=== PATIENT | female | born 1990 | race Caucasian/White ===

== ENCOUNTER 2022-04-06 11:19 | Inpatient (IN) | payer OTHER, SELFPAY ==
[2022-04-06] VITALS (9 sets, daily range): BP systolic 98–141; BP diastolic 63–86; PULSE 114–132; RESP 16–19; TEMP 37.1–38.6; O2SAT 97–100; BMI 23.4; BMI 24.2
--- NOTE | 2022-04-06 11:52 | XRR_ITS ---
PROCEDURE INFORMATION: Exam: XR Chest Exam date and time: 04/06/2022 12:20 PM Age: 31 years old Clinical indication: Cough and dyspnea; Patient HX: Reaction/swelling redness all over face and back, nausea and vomiting started Tuesday. Head pressure/lightheadness started this morning; Additional info: Dyspnea/cough TECHNIQUE: Imaging protocol: Radiologic exam of the chest. Views: 1 view. COMPARISON: No relevant prior studies available. FINDINGS: Lungs: Unremarkable. No consolidation. Pleural spaces: Unremarkable. No pleural effusion. No pneumothorax. Heart/Mediastinum: Unremarkable. No cardiomegaly. Bones/joints: Unremarkable. XR/XR chest 1V portable [id number] IMPRESSION: No acute findings.
--- NOTE | 2022-04-06 12:05 | ECG_ITS ---
[facility] Test Date: 2022-04-06 Pat Name: Gisella Lazaro Department: Room: Gender: Female Radiologic Technologist Mammogram: : 1990 Requested By: Shahbaz Ames Order Number: [id number] Manuelito MD: Yazmin Stubbs M.D. Measurements Intervals Diamond Rate: 123 P: 66 VT: 123 QRS: 59 QRSD: 73 T: -16 QT: 337 QTc: 484 Interpretive Statements SINUS TACHYCARDIA NONSPECIFIC ST & T-WAVE ABNORMALITY No previous ECG available for comparison Electronically Signed On 04-06-2022 20:27:25 CLARITY DEVELOPER by Yazmin Stubbs M.D. [id number]
[2022-04-06 12:20] LABS: Basophils % 0.2 %; Hematocrit 38.7 % (37.0-47.0); Hemoglobin 12.6 g/dL (11.5-15.3); Lymphocytes # 0.8 10^3/uL (0.8-4.8); Lymphocytes % 6.6 %; Mean Corpuscular HGB Conc 32.6 g/dL (30.0-36.0); Mean Corpuscular Volume 89.2 fl (81-99); Mean Platelet Volume 9.9 fL (7.4-10.4); Monocytes # 0.6 10^3/uL (0.2-0.9); Monocytes % 4.5 %; Neutrophils # 10.91 10^3/uL (1.8-7.7); Neutrophils % 88.3 %; Nucleated Red Blood Cells % 0 %; Platelet Count 236 10^3/cmm (130-400); Red Blood Count 4.34 10^6/uL (4.1-5.3); White Blood Count 12.4 10^3/uL (4.0-10.0)
[2022-04-06] MEDS: sodium chloride 0.9% 1,000 ML 999 ML IV (12:22)
[2022-04-06] MEDS: ondansetron 2 mg/ML SDV 2 mL 4 MG IVP (12:22)
[2022-04-06 12:51] LABS: Procalcitonin 0.23 ng/mL (0-0.5)
[2022-04-06 13:04] LABS: Alanine Aminotransferase 12 U/L (0-33); Albumin Level 3.7 g/dL (3.5-5.2); Alkaline Phosphatase 61 U/L (35-105); Aspartate Amino Transferase 12 U/L (0-32); Blood Urea Nitrogen 7 mg/dL (6-20); Calcium 9.2 mg/dL (8.5-10.5); Carbon Dioxide 21 mmol/L (22-29); Chloride 100 mmol/L (98-107); Globulin 3.6 g/dL (1.3-4.6); Glomerular Filtration Rate 84.2 mL/min (90-130); Glucose 92 mg/dL (65-115); Osmolality Calculated 274 mOsm/kg (285-295); Sodium 133 mmol/L (136-145); Total Bilirubin 0.4 mg/dL (0.15-1.2); Total Protein 7.3 g/dL (6.6-8.7)
[2022-04-06] MEDS: morphine 4 mg/mL SDV 1 mL IVP (13:05)
[2022-04-06 13:08] LABS: Anion Gap 15.8 (5-19); Potassium 3.8 mmol/L (3.5-5.1)
[2022-04-06 13:12] LABS: Add Urine Microscopic? YES; Bilirubin Urine Neg (Negative); Blood Urine 3+ (Negative); Glucose Urine UA Norm (Normal); Ketones Urine Negative (Negative); Leukocyte Esterase Urine Negative (Negative); Nitrate Urine Negative (Negative); Protein Urine Neg (Negative); Urine Appearance Clear (CLEAR); Urine Color Straw (Yellow); Urobilinogen Urine Norm (Negative); pH Urine 7 (5-7)
--- NOTE | 2022-04-06 13:26 | P.HP_ITS ---
Providers/Chief Complaint Admitting Physician: Kell Field MD Primary Care Provider: Ten Paris MD Chief Complaint: facial swelling History of Present Illness Gisella Lazaro is a 31 year old female who presented to the emergency room after being seen by primary care provider Dr. Paris today. At the end of last week she had what she thought was a pimple behind her right ear. She popped it and things seem to be getting better. This weekend she developed a rash that began around her right ear and the right side of her neck. It spread across her face. She was seen at urgent care clinic on April 04 with complaints of pain on the right side of her face that went up and down her neck and scalp area. She was also having fever. She had a shingles-like rash on her face and received treatment with steroids and valacyclovir as well as some hydrocodone. She has been taking both hydrocodone and ibuprofen to help with the degree of pain that she is experiencing. She denies any pain in her eyes or difficulty moving her eyes. She describes a full sensation in her brain today that was very uncomfortable. She is having itching in addition to skin pain. She had some vomiting throughout Tuesday and difficulty keeping down liquids. Last bowel movement was Tuesday and she is usually regular. She has had a poor appetite. Overnight last night the swelling of her face worsened as did the area of involvement. It now extends down her back and includes more than half of her face. The severity of the pain has also become more intense. She was seen at Dr. Paris's office and sent to the hospital for further evaluation. In the emergency room she was found to have a small hemorrhagic vesicle inside her right ear. White count was noted to be 12,000. She clinically appeared dry. She received IV fluids and was started on vancomycin. Blood cultures were collected. She did have a fever documented in the emergency room of 101.5. Her child has been in daycare and bring home different illnesses. Her last menstrual cycle was 03/20/22. Does not use tampons. No new skin products. Gets some relief from pain and itching with calamine lotion (area of skin involvement was present prior to her over using calamine). Does not routinely utilize Q-tips though did use 1 this morning after her symptoms worsened and describes yellowish debris, likely wax. She has never had anything like this before. Last antibiotic use was amoxicillin in early March when she had a bilateral ear infection. She completed treatment and ears normalized. Given her degree of pain and swelling, extent of involvement, persistent fever and tachycardia along with leukocytosis she is being admitted for further care. Cellulitis has developed over a 3-day period of time to the extent that it is today. Pictures from when it first started were obtained from Mrs. Lazaro and her and are noted below. PICTURES TAKEN ON 04/04/22 by patient/ 04/04/22 View of face from front 04/04/22 view of face from side 04/04/22 view of right cheek/mandibular angle Review of Systems Const: Reports: fever(s), chills and malaise Eyes: Denies: change in vision, eye discomfort or eye redness ENMT: Reports: throat pain (mild), ear or mastoid pain and other (pain of skin on face, neck, right ear); Denies: odynophagia (no droolinig or difficulty swalling), hoarseness, mouth pain, oral sores, ear discharge, tinnitus, disequilibrium or nasal congestion Card: Denies: chest pain Resp: Denies: dyspnea or wheezing GI: Reports: nausea, vomiting and constipation; Denies: abdominal pain, dysphagia or diarrhea : Denies: difficulty voiding Musc: Reports: neck pain (right side) and back pain (upper back where skin is hurting); Denies: joint pain or joint swelling Skin/Breast: Reports: rash, pruritus, erythema, skin pain, skin tenderness and skin swelling Psych: Reports: anxiety (about current situation) [place]/Lymph: Denies: easy bleeding All/Imm: Reports: facial swelling Medications/Allergies Home Medications Medication Instructions Recorded Confirmed Last Taken Type hydrocodone 5 mg-acetaminophen 325 1 tab PO Q4H PRN pain 7 days #28 04/04/22 04/06/22 04/06/22 09:00 Rx mg tablet tabs prednisone 20 mg tablet 20 mg PO DAILY 5 days #15 tabs 04/04/22 04/06/22 04/05/22 Rx states finished 04/05/ valacyclovir 1 gram tablet 1,000 mg PO Q8H 10 days #30 tabs 04/04/22 04/06/22 04/06/22 07:30 Rx calcium carbonate 200 mg calcium 200 mg PO QID PRN unknown 04/06/22 04/06/22 04/06/22 History (500 mg) chewable tablet (Tums) hydroxyzine HCl 25 mg tablet 25 mg PO BEDTIME PRN Anxiety 04/06/22 04/06/22 4 Days Ago History ~04/02/22 ibuprofen 200 mg tablet 600 - 800 mg PO Q6H PRN Pain 04/06/22 04/06/22 04/04/22 History Allergies Allergy/AdvReac Type Severity Reaction Status Date / Time ceftriaxone [From Rocephin] Allergy ALGY-Rash Verified 04/06/22 12:59 Additional Medication Information no chronic medications beyond prns - uses hydroxyzine 2-3 times per week to help sleep when her mind is full of thoughts and takes occasional times PFSH Acute PFSH: Medical History (Updated 04/06/22 @ 19:22 by Kell Field MD) 1 para 1 History of scarlet fever Surgical History (Updated 04/06/22 @ 14:48 by Kell Field MD) History of Family History (Updated 04/06/22 @ 14:49 by Kell Field MD) Father , age 51 from CAD CAD (coronary artery disease) Social History (Updated 04/06/22 @ 14:50 by Kell Field MD) Smoking and tobacco status: never smoked Alcohol intake: never Substance/Drug Use: never Marital status: Number of children: 1 Current occupational status: employed 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 Reproductive History: Date of last menstrual period: 03/20/22 G ravida: 1 Para: 1 Vitals/I&O/Wt Last Vital Signs Temp 101.5 F H 04/06/22 11:24 Pulse 126 H 04/06/22 12:01 Resp 19 H 04/06/22 13:05 BP 138/83 04/06/22 12:01 Pulse Ox 100 04/06/22 12:01 O2 Del Method 04/06/22 12:01 Weight last 48 hrs Weight 54.431 kg Physical Exam Narrative: Constitutional: Looks like she does not feel well, anxious, shaking chills, cooperative HEENT: Facial skin edema as described below, extraocular movements are intact with no evidence of pain appreciated, no photosensitivity, pupils are equally reactive bilaterally, conjunctive are are not particularly injected, sclera are white. Nasopharynx is clear. Oropharynx with dry mucous membranes and dry lips. There is a small couple of millimeter whitish exudate on the left tonsil and a couple millimeter area of erythema on the right tonsil. Both tonsils are within the tonsillar crypts. Able to visualize posterior oropharynx without any erythema otherwise appreciated. No vesicles. No open sores. Good dentition. Right ear is swollen. No significant increase in tenderness with tugging on the pinna. Via otoscopic examination, there is a 3 or 4 mm diameter hemorrhagic appearing vesicle on the anterior surface of the right ear canal. Canal is not particularly erythematous or remarkable otherwise. Tympanic membrane is clear with brisk light reflex and no erythema. Neck: Tender right-sided cervical lymphadenopathy along the entire sternoc leidomastoid chain and into the submandibular area. Impacts range of motion though able to tilt head forward to allow me to examine her back. In addition to neck adenopathy, has tender right axillary adenopathy. No left axillary adenopathy noted. Respiratory: Clear to auscultation bilaterally, tachypnea noted Cardiovascular: Tachycardic but regular rhythm, no murmurs Abdomen: Soft, nontender Extremities: No pitting edema to extremities, brisk capillary refill Skin: Tender warm edematous and erythematous skin on the face involving the entire right side except for the nasolabial fold and perioral regions. Skin of the nasal bridge and the tip of the nose are included and extends to the left side of the face about mid eye line. Lips are dry. Erythema extends down the right side of the neck, not involving the neck crease into the right mid shoulder. Erythema extends around the right ear and posterior auricular region and here does include the creases around the ear. Scalp on the right side of the head is erythematous and warm to touch. 2 small scabbed lesions that are unimpressive in the posterior auricular area near where her glasses might hit the occipital bone. No other open skin wounds visible or palpable on the scalp. Left side of the scalp is less erythematous. Patient's hair touching her skin hurts. Erythema extends down the back in a V-shaped pattern from the right shoulder to the base of the right scapula and a little bit beyond and then up to the left mid clavicular area again with edema and tenderness to palpation along with heat noted. No areas of desquamating skin. Beyond the vesicle noted in the right ear no other vesicles noted. Neuro: Speech clear, moves all extremities, tremors from shaking chills noted but otherwise no abnormal movements Psych: Normal affect for current clinical condition Skin: OTHER: 04/06/22 view of face from front -patient has calamine lotion on her face 04/06/22 view of face from right side -calamine lotion is on face 04/06/22 view of back - does not show skin edema well, nor redness from left scapular area almost to right shoulder and extends to base of right scapula in a V shape from mid left scapula extending to mid back and back up to the right shoulder. -Calamine lotion is on back Data 04/06/22 12:10 04/06/22 12:10 Other Labs: Radiology Impressions Chest X-Ray 04/06/22 11:52 IMPRESSION: No acute findings. Laboratory Results WBC 12.4 10^3/uL (4.0-10.0) H 04/06/22 12:10 RBC 4.34 10^6/uL (4.1-5.3) 04/06/22 12:10 Hgb 12.6 g/dL (11.5-15.3) 04/06/22 12:10 Hct 38.7 % (37.0-47.0) 04/06/22 12:10 MCV 89.2 fl (81-99) 04/06/22 12:10 MCH 29.0 pg (28.0-34.0) 04/06/22 12:10 MCHC 32.6 g/dL (30.0-36.0) 04/06/22 12:10 RDW 13.0 % (12.1-15.1) 04/06/22 12:10 Plt Count 236 10^3/cmm (130-400) 04/06/22 12:10 MPV 9.9 fL (7.4-10.4) 04/06/22 12:10 Neut % (Auto) 88.3 % 04/06/22 12:10 Lymph % (Auto) 6.6 % 04/06/22 12:10 [place] % (Auto) 4.5 % 04/06/22 12:10 Eos % (Auto) 0.0 % 04/06/22 12:10 Baso % (Auto) 0.2 % 04/06/22 12:10 Neut # (Auto) 10.91 10^3/uL (1.8-7.7) H 04/06/22 12:10 Lymph # (Auto) 0.8 10^3/uL (0.8-4.8) 04/06/22 12:10 [place] # (Auto) 0.6 10^3/uL (0.2-0.9) 04/06/22 12:10 Eos # (Auto) 0.0 10^3/uL (0.0-0.8) 04/06/22 12:10 Baso # (Auto) 0.0 10^3/uL (0.0-0.1) 04/06/22 12:10 Nucleated RBC % (auto) 0 % 04/06/22 12:10 Nucleated RBCs # 0.0 /100WBC 04/06/22 12:10 Sodium 133 mmol/L (136-145) L 04/06/22 12:10 Potassium 3.8 mmol/L (3.5-5.1) 04/06/22 12:10 Chloride 100 mmol/L (98-107) 04/06/22 12:10 Carbon Dioxide 21 mmol/L (22-29) L 04/06/22 12:10 Anion Gap 15.8 (5-19) 04/06/22 12:10 BUN 7 mg/dL (6-20) 04/06/22 12:10 Creatinine 0.8 mg/dL (0.5-0.9) 04/06/22 12:10 GFR Calculation 84.2 mL/min (90-130) L 04/06/22 12:10 Glucose 92 mg/dL (65-115) 04/06/22 12:10 Calculated Osmolality 274 mOsm/kg (285-295) L 04/06/22 12:10 Lactic Acid 1.0 mmol/L (0.5-2.2) 04/06/22 12:10 Calcium 9.2 mg/dL (8.5-10.5) 04/06/22 12:10 Total Bilirubin 0.4 mg/dL (0.15-1.2) 04/06/22 12:10 AST 12 U/L (0-32) 04/06/22 12:10 ALT 12 U/L (0-33) 04/06/22 12:10 Alkaline Phosphatase 61 U/L (35-105) 04/06/22 12:10 Total Protein 7.3 g/dL (6.6-8.7) 04/06/22 12:10 Albumin 3.7 g/dL (3.5-5.2) 04/06/22 12:10 Globulin 3.6 g/dL (1.3-4.6) 04/06/22 12:10 Procalcitonin 0.23 ng/mL (0-0.5) 04/06/22 12:10 Urine Color Straw (Yellow) 04/06/22 12:10 Urine Appearance Clear (CLEAR) 04/06/22 12:10 Urine pH 7 (5-7) 04/06/22 12:10 Ur Specific [place] 1.000 (1.005-1.030) L 04/06/22 12:10 Urine Protein Neg (Negative) 04/06/22 12:10 Urine Glucose (UA) Norm (Normal) 04/06/22 12:10 Urine Ketones Negative (Negative) 04/06/22 12:10 Urine Blood 3+ (Negative) H 04/06/22 12:10 Urine Nitrate Negative (Negative) 04/06/22 12:10 Urine Bilirubin Neg (Negative) 04/06/22 12:10 Urine Urobilinogen Norm mg/dL (Negative) 04/06/22 12:10 Ur Leukocyte Esterase Negative (Negative) 04/06/22 12:10 Amorphous Sediment Not Reportable 04/06/22 12:10 Additional Laboratory Tests 04/06/22 04/06/22 12:10 12:10 ESR 47 H C-Reactive Protein 191.2 H A&P Assessment and plan (1) Cellulitis of face: Involves the entire right side of the face, including eyelids and nose, extending to the left of midline along with right auricular and mastoid regions, continuing down the right side of the neck and to the back, right side more so than left side, to the scapular area. Skin is edematous, erythematous, warm to touch and painful to touch. No areas of fluctuance or drainage are noted. 2 s mall healing wounds in the posterior auricular area noted but no other open wounds. Initially felt to to have shingles and was initiated on treatment for such. Presently appears more consistent with bacterial skin infection, either a second primary or secondary process. Based on history the initial wound in the right posterior auricular area seems the most likely nidus of the infection and ap pears to have spread among the pericervical lymph node chains, though the extent of back involvement is more than I would anticipate. Right axillary node involvement also apparent on exam. Has associated fever, tachycardia, leukocytosis. Normal lactic acid. At risk for development of sepsis 3 criteria without appropriate treatment. Normal glucose. No history of recurrent skin infections. No personal or family history of vasculitides. Has a history of scarlet fever and a bilateral ear infection in early March. (2) Ear canal blister: Hemorrhagic appearing, measuring ~3-4 mm diameter on anterior surface of right ear canal. Alternatively this could be a dark nevi in the ear canal or hemangioma. (3) Elevated C-reactive protein (CRP): Quite significant CRP elevation at 191 with current sed rate of 47 Plan Inpatient admission Empiric vancomycin and Zosyn Will continue oral valacyclovir for total of 10 days Hold further steroids Topical Benadryl Blood cultures have been collected Check CK Recheck CRP If CRP remains significantly elevated and there is not clinical improvement despite initiation of antibiotic therapy will consider imaging and other modalities for further evaluation Pain control with NSAIDs and narcotics as needed Tylenol for fever Continue IVFs Recheck labs in the morning Hydroxyzine as needed for itching and anxiety Stool softeners Supportive care otherwise Presently low risk for VTE Findings, concerns and plans were discussed with patient, her and her mother. All were given an opportunity to ask questions. Anticipate follow-up with primary care provider after discharge. Dr. Paris was in the emergency room for another reason and I updated him on plans of care at this time. Full code Attestations Medical Necessity Statement*: Anticipated stay greater than two midnights in this patient with impressive facial and back cellulitis that has worsened over the last few days. She has associated fever and tachycardia as well as significant elevation in inflammatory markers. Requires close monitoring for progressive skin findings, initiation of IV antibiotics and fluids as well as adequate pain control, currently requiring IV pain medication. Other issues and plans are as noted above. Coding Level of Care Code Acute Car Tracer for [facility] Luanne Diagnoses Cellulitis of face L03.211 Ear canal blister S00.429A Elevated C-reactive protein (CRP) R79.82
--- NOTE | 2022-04-06 13:32 | W.ED.SKABFB ---
HPI - Skin/Abscess/Foreign Bdy General: Chief complaint: Skin/Abscess/Foreign Body Stated complaint: facial swelling Time Seen by Provider: 04/06/22 11:51 Source: patient Mode of arrival: ambulatory History of Present Illness: 31-year-old female presents emergency room with exquisitely tender facial pain and swelling and swelling along her neck shoulder shoulder and upper back. She seen her primary care doctor this morning and referred to the emergency room. Last week approximately 5 days ago she had what she describes as a pimple behind her right ear she manipulated had some bloody drainage from it and it seemed to be okay couple days later she started to notice something swelling there with redness and spread across her ear and into her face she was seen in urgent care clinic started on prednisone and antivirals. It progressively worsened over the next couple days and so she presented to the emergency room today after going to her doctor's office. She complaining of burning rash across the face neck and upper back that is itching. She has been nauseated she is tachycardic and febrile on arrival here with a headache. Onset (ago): day(s) Location: head, face, neck and back Severity: moderate Quality: burning Pain Consistency: constant Relieving factors: none Exacerbating factors: none Associated symptoms: Deny chills, fever(s), nausea or vomiting Treatments prior to arrival: other (Steroids and oral antivirals) Review of Systems Const: Denies: fever(s), chills, body aches, change in appetite, fatigue or malaise ENMT: Denies: throat pain, ear or mastoid pain, nasal discharge or nasal congestion Card: Denies: chest pain, edema, dyspnea on exertion or orthopnea Resp: Denies: dyspnea, productive cough or non-productive cough GI: Denies: abdominal pain, nausea, vomiting, hematemesis, coffee ground emesis, diarrhea, constipation, bloating, hematochezia or melena : Denies: flank pain, difficulty voiding, dysuria, urinary frequency or urinary urgency Skin/Breast: Reports: rash, erythema, skin pain, skin tenderness and skin swelling [facility] ED PFSH: Medical History (Updated 04/08/22 @ 21:42 by Shahbaz Briggs DO) 1 para 1 History of scarlet fever Surgical History (Updated 04/06/22 @ 14:48 by Kell Field MD) History of Family History (Updated 04/06/22 @ 14:49 by Kell Field MD) Father , age 51 from CAD CAD (coronary artery disease) Social History (Updated 04/06/22 @ 14:50 by Kell Field MD) Smoking and tobacco status: never smoked Alcohol intake: never Substance/Drug Use: never Marital status: Number of children: 1 Current occupational status: employed 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 [employer] Physical Exam Const: GENERAL APPEARANCE: cooperative ORIENTATION/CONSCIOUSNESS: Yes awake, Yes oriented to person, Yes oriented to place and Yes oriented to time HENMT: COMMON NORMALS: normocephalic, atraumatic, hearing grossly normal bilaterally, external ears normal, TM's normal bilaterally, Normal nasal mucous membranes and turbinates present, moist oral mucous membranes and oropharynx normal HEAD & SCALP: normocephalic and atraumatic NOSE: Normal nasal mucous membranes and turbinates present EXTERNAL EAR: Yes external ears normal EXTERNAL AUDITORY CANAL: Abnormal EAC present EAC laterality: right (Vesicle to the floor of the external auditory canal approximately 3 to 4 mm in diameter) TYMPANIC MEMBRANE: TM's normal bilaterally Eye: COMMON NORMALS: Equal, round and reactive pupils present, EOMs intact bilaterally, conjunctivae normal and no scleral icterus CONJUNCTIVA: Yes conjunctivae normal PUPIL: Yes Equal, round and reactive pupils present Neck/C-Spine: COMMON NORMALS: full ROM, no lymphadenopathy, supple and no JVD Lymph: LYMPHATIC: no lymphadenopathy noted and no lymphedema noted Resp: COMMON NORMALS: normal respiratory effort, No retractions, No use of accessory muscles and clear to auscultation bilaterally AUSCULTATION: clear to auscultation bilaterally Cardio: COMMON NORMALS: no JVD, regular rate, regular rhythm and No murmurs present (Cardio) RATE: regular rate RHYTHM: regular rhythm GI: COMMON NORMALS: Soft to palpation and No hepatosplenomegaly present AUSCULTATION: Yes normoactive bowel sounds PALPATION: Yes Soft to palpation, No Tenderness to palpation present (GI), No Guarding due to palpation present (GI) and Yes No hepatosplenomegaly present Extremity: COMMON NORMALS: normal to inspection, capillary refill normal, no clubbing, cyanosis or edema, no calf tenderness and no pedal edema Neuro: SENSORIUM/ORIENTATION: Yes oriented to person, Yes oriented to place and Yes oriented to time Skin: COMMON NORMALS: no rashes or lesions noted GENERAL SKIN EXAM: no rashes or lesions noted OTHER: Raised mildly indurated rash seems to lose focus in the left posterior auricular area the original nidus of the comedone she described is all completely healed there is indurated skin with a little bit. Desquamation on the right ear. Spreads down the neck across the face crossing the midline in the forehead across the right cheek is also on the shoulder and crosses the midline of the back nearly to the left shoulder. Course Vital Signs: Vital signs: Vital Signs Temperature 98.7 F 04/08/22 20:00 Pulse Rate 82 04/08/22 20:00 Respiratory Rate 18 04/08/22 20:00 Blood Pressure 113/73 04/08/22 20:00 Pulse Oximetry 98 04/08/22 20:00 Oxygen Delivery Me thod 04/08/22 20:00 MDM - Skin/Abscess/Foreign Bdy Medicial Decision Making Leukocytosis with a fever up to 1015. Cultures done started on vancomycin. Discussed with hospitalist orders written Medical Records I reviewed the patient's medical records. Lab Data I reviewed the patient's lab results. 04/06/22 12:10 04/06/22 12:10 Radiology Impressions Chest X-Ray 04/06/22 11:52 IMPRESSION: No acute findings. Laboratory Results WBC 12.4 10^3/uL (4.0-10.0) H 04/06/22 12:10 RBC 4.34 10^6/uL (4.1-5.3) 04/06/22 12:10 Hgb 12.6 g/dL (11.5-15.3) 04/06/22 12:10 Hct 38.7 % (37.0-47.0) 04/06/22 12:10 MCV 89.2 fl (81-99) 04/06/22 12:10 MCH 29.0 pg (28.0-34.0) 04/06/22 12:10 MCHC 32.6 g/dL (30.0-36.0) 04/06/22 12:10 RDW 13.0 % (12.1-15.1) 04/06/22 12:10 Plt Count 236 10^3/cmm (130-400) 04/06/22 12:10 MPV 9.9 fL (7.4-10.4) 04/06/22 12:10 Neut % (Auto) 88.3 % 04/06/22 12:10 Lymph % (Auto) 6.6 % 04/06/22 12:10 Thayer % (Auto) 4.5 % 04/06/22 12:10 Eos % (Auto) 0.0 % 04/06/22 12:10 Baso % (Auto) 0.2 % 04/06/22 12:10 Neut # (Auto) 10.91 10^3/uL (1.8-7.7) H 04/06/22 12:10 Lymph # (Auto) 0.8 10^3/uL (0.8-4.8) 04/06/22 12:10 Thayer # (Auto) 0.6 10^3/uL (0.2-0.9) 04/06/22 12:10 Eos # (Auto) 0.0 10^3/uL (0.0-0.8) 04/06/22 12:10 Baso # (Auto) 0.0 10^3/uL (0.0-0.1) 04/06/22 12:10 Nucleated RBC % (auto) 0 % 04/06/22 12:10 Nucleated RBCs # 0.0 /100WBC 04/06/22 12:10 ESR 47 mm/hr (0-15) H 04/06/22 12:10 Sodium 133 mmol/L (136-145) L 04/06/22 12:10 Potassium 3.8 mmol/L (3.5-5.1) 04/06/22 12:10 Chloride 100 mmol/L (98-107) 04/06/22 12:10 Carbon Dioxide 21 mmol/L (22-29) L 04/06/22 12:10 Anion Gap 15.8 (5-19) 04/06/22 12:10 BUN 7 mg/dL (6-20) 04/06/22 12:10 Creatinine 0.8 mg/dL (0.5-0.9) 04/06/22 12:10 GFR Calculation 84.2 mL/min (90-130) L 04/06/22 12:10 Glucose 92 mg/dL (65-115) 04/06/22 12:10 Calculated Osmolality 274 mOsm/kg (285-295) L 04/06/22 12:10 Lactic Acid 1.0 mmol/L (0.5-2.2) 04/06/22 12:10 Calcium 9.2 mg/dL (8.5-10.5) 04/06/22 12:10 Total Bilirubin 0.4 mg/dL (0.15-1.2) 04/06/22 12:10 AST 12 U/L (0-32) 04/06/22 12:10 ALT 12 U/L (0-33) 04/06/22 12:10 Alkaline Phosphatase 61 U/L (35-105) 04/06/22 12:10 C-Reactive Protein 191.2 mg/L (0.0-4.9) H 04/06/22 12:10 Total Protein 7.3 g/dL (6.6-8.7) 04/06/22 12:10 Albumin 3.7 g/dL (3.5-5.2) 04/06/22 12:10 Globulin 3.6 g/dL (1.3-4.6) 04/06/22 12:10 Procalcitonin 0.23 ng/mL (0-0.5) 04/06/22 12:10 Urine Color Straw (Yellow) 04/06/22 12:10 Urine Appearance Clear (CLEAR) 04/06/22 12:10 Urine pH 7 (5-7) 04/06/22 12:10 Ur Specific [place] 1.000 (1.005-1.030) L 04/06/22 12:10 Urine Protein Neg (Negative) 04/06/22 12:10 Urine Glucose (UA) Norm (Normal) 04/06/22 12:10 Urine Ketones Negative (Negative) 04/06/22 12:10 Urine Blood 3+ (Negative) H 04/06/22 12:10 Urine Nitrate Negative (Negative) 04/06/22 12:10 Urine Bilirubin Neg (Negative) 04/06/22 12:10 Urine Urobilinogen Norm mg/dL (Negative) 04/06/22 12:10 Ur Leukocyte Esterase Negative (Negative) 04/06/22 12:10 Urine RBC 0-4 /hpf (0-2) H 04/06/22 12:10 Urine WBC 0-4 /hpf (0-5) H 04/06/22 12:10 Ur Squamous Epith Cells 5-10 /hpf (0-5) H 04/06/22 12:10 Amorphous Sediment Not Reportable 04/06/22 12:10 Urine Bacteria 1+ /hpf (NONE) H 04/06/22 12:10 Discharge Plan Discharge Patient Disposition: Admitted As Inpatient Admit Provider: Kell Field Clinical Impression: Cellulitis of face, Ear canal blister Condition: Stable Coding Level of Care Code ED Broth Setter for [facility]
[2022-04-06] MEDS: piperacillin-tazobactam 3.375 GM in sodium chloride 0.9% (plus) 50 ML IV ×2 (13:48→20:13)
[2022-04-06 13:49] LABS: Bacteria Urine 1+ /hpf; RBC Urine 0-4 /hpf (0-2); WBC Urine 0-4 /hpf (0-5)
[2022-04-06 13:54] LABS: Erythrocyte Sedimentation Rate 47 mm/hr (0-15)
[2022-04-06 14:07] LABS: C Reactive Protein 191.2 mg/L (0.0-4.9)
[2022-04-06] MEDS: sodium chlor 0.9% + KCl 20 mEq 20 MEQ/1,000 ML BAG 100 MEQ IV ×2 (15:51→22:34)
[2022-04-06] MEDS: vancomycin 750 MG in sodium chloride 0.9% 250 ML 250 MG IV (15:51)
[2022-04-06] MEDS: acetaminophen 325 mg Tablet 650 MG PO (15:53)
[2022-04-06] MEDS: valACYclovir 1,000 mg Tablet 1000 MG PO ×2 (15:53→22:34)
[2022-04-06] MEDS: docusate sodium 100 mg Capsule PO (17:23)
[2022-04-06] MEDS: hyDROXYzine 25 mg Capsule PO (17:55)
[2022-04-06] MEDS: HYDROcodone-acetaminophen 5-325 mg Tablet 1 TAB PO (20:12)
[2022-04-06] MEDS: sodium chloride 0.9% 500 ML IV (20:24)
[2022-04-07] VITALS: BP 108/71; PULSE 103; RESP 16; TEMP 37.7; O2SAT 99
[2022-04-07] MEDS: HYDROcodone-acetaminophen 5-325 mg Tablet 1 TAB PO (02:49)
[2022-04-07] MEDS: vancomycin 750 MG in sodium chloride 0.9% 250 ML 250 MG IV ×2 (02:50→17:25)
[2022-04-07 04:00] VITALS: BP 107/69; PULSE 110; RESP 17; TEMP 37; O2SAT 97
[2022-04-07 04:28] LABS: Basophils % 0.4 %; Eosinophils # 0.1 10^3/uL (0.0-0.8); Eosinophils % 0.6 %; Hematocrit 33.7 % (37.0-47.0); Hemoglobin 11.1 g/dL (11.5-15.3); Lymphocytes # 1.5 10^3/uL (0.8-4.8); Lymphocytes % 17.5 %; Mean Corpuscular HGB Conc 32.9 g/dL (30.0-36.0); Mean Corpuscular Hemoglobin 29.5 pg (28.0-34.0); Mean Corpuscular Volume 89.6 fl (81-99); Mean Platelet Volume 9.8 fL (7.4-10.4); Monocytes # 0.6 10^3/uL (0.2-0.9); Monocytes % 6.8 %; Neutrophils # 6.21 10^3/uL (1.8-7.7); Neutrophils % 73.7 %; Nucleated Red Blood Cells % 0 %; Platelet Count 200 10^3/cmm (130-400); Red Blood Count 3.76 10^6/uL (4.1-5.3); Red Cell Distribution Width 13.5 % (12.1-15.1); White Blood Count 8.4 10^3/uL (4.0-10.0)
[2022-04-07 04:45] LABS: C Reactive Protein 220.8 mg/L (0.0-4.9); Creatine Phosphokinase 15 U/L (26-192)
[2022-04-07] MEDS: piperacillin-tazobactam 3.375 GM in sodium chloride 0.9% (plus) 50 ML IV ×3 (05:38→22:19)
[2022-04-07] MEDS: valACYclovir 1,000 mg Tablet 1000 MG PO ×3 (05:38→22:19)
[2022-04-07] MEDS: hyDROXYzine 25 mg Capsule PO ×2 (05:39→11:59)
[2022-04-07 06:01] LABS: Anion Gap 12.3 (5-19); Blood Urea Nitrogen 5 mg/dL (6-20); Carbon Dioxide 23 mmol/L (22-29); Chloride 108 mmol/L (98-107); Glomerular Filtration Rate 98.3 mL/min (90-130); Glucose 87 mg/dL (65-115); Magnesium 1.7 mg/dL (1.7-2.3); Osmolality Calculated 285 mOsm/kg (285-295); Potassium 4.3 mmol/L (3.5-5.1); Sodium 139 mmol/L (136-145)
[2022-04-07 08:00] VITALS: BP 106/66; PULSE 102; RESP 17; TEMP 36.6; O2SAT 99
[2022-04-07] MEDS: ketorolac 30 mg/mL INJ IVP (08:42)
[2022-04-07] MEDS: docusate sodium 100 mg Capsule PO ×2 (08:42→17:23)
[2022-04-07 12:00] VITALS: BP 115/72; PULSE 93; RESP 18; TEMP 36.9; O2SAT 99
--- NOTE | 2022-04-07 13:15 | P.PN_ITS ---
Subjective Subjective: Still having swelling of her face which she states has not come down. No progression. He is having tenderness of the affected areas. Small ulceration behind her ear has healed up. No surrounding swelling, erythema or drainage. No erythema or drainage from the right ear. Discussed with her to avoid touching ulceration in other areas on her skin. She is accompanied at the bedside by her family. Looking at her back the redness is less intense as per discussion with her mother, there is still induration, some tenderness to touch. No open areas, no ulcerations or drainage. Discussed fever appears to have subsided, and leukocytosis resolved. Vitals/I&O/Wt Last Vital Signs Temp 98.5 F 04/07/22 12:00 Pulse 93 04/07/22 12:00 Resp 18 04/07/22 12:00 BP 115/72 04/07/22 12:00 Pulse Ox 99 04/07/22 12:00 O2 Del Method 04/07/22 12:00 04/06/22 04/07/22 04/07/22 22:59 06:59 14:59 Intake Total 1591.667 / 2641.667 250 / 2891.667 170 / 170 Balance 1591.667 / 2641.667 250 / 2891.667 170 / 170 Weight last 48 hrs Weight 56.291 kg Weight 54.431 kg Physical Exam Narrative: Accompanied by family. Const: COMMON NORMALS: patient oriented x3 and alert GENERAL APPEARANCE: cooperative ORIENTATION/CONSCIOUSNESS: Yes awake HENMT: COMMON NORMALS: oropharynx normal Neck/C-Spine: COMMON NORMALS: no JVD Resp: COMMON NORMALS: normal respiratory effort and clear to auscultation bilaterally AUSCULTATION: clear to auscultation bilaterally Cardio: COMMON NORMALS: no JVD, regular rhythm, S1 normal heart sound present, S2 normal heart sound present and No murmurs present (Cardio) RHYTHM: regular rhythm HEART SOUNDS: S1 normal heart sound present and S2 normal heart sound present GI: COMMON NORMALS: Normal to inspection, nondistended, normoactive bowel sounds present, Soft to palpation and non-tender PALPATION: Yes Soft to palpation Extremity: COMMON NORMALS: no joint enlargement and no pedal edema Neuro: COMMON NORMALS: patient oriented x3 and moves all extremities SENSORIUM/ORIENTATION: Yes alert Skin: RASHES: rashes noted (Subsided erythema, persistent induration with facial swelling) OTHER: Mild swelling over forehead, periorbital swelling. R ear. Swelling over the neck appears to be improved. Persistently duration with improving erythema over her back. Healed shallow ulceration behind the right ear and another 1 slightly lower. No drainage. No fresh blisters. Data 04/07/22 04:16 04/07/22 04:16 Micro: Microbiology 04/06/22 13:45 Blood Culture - Preliminary Blood SPECIMEN COLLECTED 04/06/22 13:38 Blood Culture - Preliminary Blood SPECIMEN COLLECTED A&P Assessment and plan (1) Cellulitis of face: Extensive cellulitis of right auricle, face, posterior neck, back. Clinical condition so far with improvement. Fever today has subsided. Leukocytosis resolved. Tachycardia with significant improvement. Swelling and induration persist, she states skin is tender, although erythema is with improvement. There is no progression today of area of induration. Continue IV antibiotics. For now continue monitoring in the hospital with extensive infection. Suspected cellulitis with point of entry being the wound behind her ear. Necrotizing fasciitis thought unlikely on presentation, and currently appears less likely considering shown improvement. Decrease IVF rate. Follow-up CBC, BMP. For now empirically continues on valacyclovir. Shingles not likely responsible for current symptoms, but there was question whether may have been initial infection serving to the point of entry. Currently does not appear to have any fresh blisters. Obtain VZV serologies. Repeat titers on outpatient side for comparison. (2) Ear canal blister: Hemorrhagic appearing, measuring ~3-4 mm diameter on anterior surface of right ear canal. Alternatively this could be a dark nevi in the ear canal or hemangioma. (3) Elevated C-reactive protein (CRP): Follow-up in the morning. Attestations Medical Necessity Statement*: Continue admission for assessment management of extensive cellulitis including face, neck, back. Coding Level of Care Code Acute Sales And Service Consultant for [facility] Fwd Exam Comprehensive Diagnoses Cellulitis of face L03.211 Ear canal blister S00.429A Elevated C-reactive protein (CRP) R79.82
[2022-04-07] MEDS: sodium chloride 0.9% 1,000 ML 75 ML IV (14:32)
[2022-04-07 16:00] VITALS: BP 115/73; PULSE 97; RESP 17; TEMP 37.2; O2SAT 99
[2022-04-07] MEDS: acetaminophen 325 mg Tablet 650 MG PO (17:24)
[2022-04-07 20:00] VITALS: BP 104/71; PULSE 89; RESP 16; TEMP 37.1; O2SAT 98
[2022-04-07] MEDS: sennosides 8.6 mg Tablet PO (22:19)
[2022-04-08] VITALS: BP 101/65; PULSE 94; RESP 16; TEMP 36.8; O2SAT 99
[2022-04-08] MEDS: acetaminophen 325 mg Tablet 650 MG PO ×2 (02:47→20:34)
[2022-04-08 03:14] LABS: Basophils # 0.1 10^3/uL (0.0-0.1); Basophils % 0.7 %; Eosinophils # 0.4 10^3/uL (0.0-0.8); Eosinophils % 5.1 %; Hematocrit 33.7 % (37.0-47.0); Hemoglobin 10.7 g/dL (11.5-15.3); Lymphocytes % 24.8 %; Mean Corpuscular HGB Conc 31.8 g/dL (30.0-36.0); Mean Corpuscular Hemoglobin 29.2 pg (28.0-34.0); Mean Corpuscular Volume 91.8 fl (81-99); Mean Platelet Volume 9.9 fL (7.4-10.4); Monocytes # 0.7 10^3/uL (0.2-0.9); Monocytes % 8.3 %; Neutrophils # 4.71 10^3/uL (1.8-7.7); Neutrophils % 58.6 %; Nucleated Red Blood Cells % 0 %; Platelet Count 233 10^3/cmm (130-400); Red Blood Count 3.67 10^6/uL (4.1-5.3)
[2022-04-08 03:44] LABS: Blood Urea Nitrogen 7 mg/dL (6-20); C Reactive Protein 188.6 mg/L (0.0-4.9); Calcium 8.3 mg/dL (8.5-10.5); Carbon Dioxide 25 mmol/L (22-29); Chloride 108 mmol/L (98-107); Glomerular Filtration Rate 84.2 mL/min (90-130); Glucose 92 mg/dL (65-115); Osmolality Calculated 290 mOsm/kg (285-295); Sodium 141 mmol/L (136-145)
[2022-04-08 03:49] LABS: Vancomycin Trough 6.5 ug/mL (10-15)
[2022-04-08 04:12] VITALS: BP 111/70; PULSE 103; RESP 16; TEMP 37.7; O2SAT 97
[2022-04-08] MEDS: vancomycin 750 MG in sodium chloride 0.9% 250 ML 250 MG IV ×3 (04:51→20:22)
[2022-04-08] MEDS: sodium chloride 0.9% 1,000 ML 75 ML IV (04:54)
[2022-04-08] MEDS: hyDROXYzine 25 mg Capsule PO (05:02)
[2022-04-08] MEDS: ketorolac 30 mg/mL INJ IVP (05:04)
[2022-04-08] MEDS: piperacillin-tazobactam 3.375 GM in sodium chloride 0.9% (plus) 50 ML IV ×3 (06:35→21:55)
[2022-04-08] MEDS: valACYclovir 1,000 mg Tablet 1000 MG PO ×3 (06:35→22:07)
[2022-04-08 08:00] VITALS: BP 113/75; PULSE 89; RESP 16; TEMP 37; O2SAT 97
[2022-04-08] MEDS: docusate sodium 100 mg Capsule PO ×2 (10:31→17:35)
[2022-04-08 12:00] VITALS: BP 104/73; PULSE 81; RESP 16; TEMP 36.9; O2SAT 97
--- NOTE | 2022-04-08 15:53 | PM.PN ---
Subjective Subjective: When asked how she is doing initially shakes her hand so-so , but on further discussion she is doing better with some gradual decrease in facial swelling, further improvement in erythema over the right side of her face, ear, neck, posterior neck and back, with decreasing induration over the back. Discussing with her regarding any recent changes in cosmetics that she is, she states she usually applies Cetaphil lotion for moisture, has started using new foundation a week ago from last Tuesday. Discussed with her to exercise caution with returning to the foundation. Lower chance but possibility of contact dermatitis, although she certainly does not apply to her either neck or back. She denies use of any other cosmetics, denies any topical steroid use. Vitals/I&O/Wt Last Vital Signs Temp 98.4 F 04/08/22 12:00 Pulse 81 04/08/22 12:00 Resp 16 04/08/22 12:00 BP 104/73 04/08/22 12:00 Pulse Ox 97 04/08/22 12:00 O2 Del Method 04/08/22 12:00 04/08/22 04/08/22 04/08/22 06:59 14:59 22:59 Intake Total 1670 / 3250 540 / 540 Balance 1670 / 3250 540 / 540 Weight last 48 hrs Weight 56.291 kg Physical Exam Narrative: Friend at bedside. Const: COMMON NORMALS: patient oriented x3 and alert GENERAL APPEARANCE: cooperative ORIENTATION/CONSCIOUSNESS: Yes awake HENMT: COMMON NORMALS: oropharynx normal OTHER: In the inferior portion about midway through the external auditory canal there is a small round area of about 1.5 to 2 mm suspected site of the prior vesicle, currently with brownish/reddish discoloration slight doming and appears to be clot/eschar at the site of the prior reported blister, mild surrounding erythema. Neck/C-Spine: COMMON NORMALS: no JVD Resp: COMMON NORMALS: normal respiratory effort and clear to auscultation bilaterally AUSCULTATION: clear to auscultation bilaterally Cardio: COMMON NORMALS: no JVD, regular rhythm, S1 normal heart sound present, S2 normal heart sound present and No murmurs present (Cardio) RHYTHM: regular rhythm HEART SOUNDS: S1 normal heart sound present and S2 normal heart sound present GI: COMMON NORMALS: Normal to inspection, nondistended, normoactive bowel sounds present, Soft to palpation and non-tender PALPATION: Yes Soft to palpation Extremity: COMMON NORMALS: no joint enlargement and no pedal edema Neuro: COMMON NORMALS: patient oriented x3 and moves all extremities SENSORIUM/ORIENTATION: Yes alert Skin: RASHES: rashes noted (Subsided erythema, persistent induration with facial swelling) OTHER: Slowly decreasing swelling over forehead and periorbital swelling. Improved swelling and resolved erythema R ear. Swelling over the neck appears to be improved. Resolved erythematous patch right inferior neck, persistently now milder induration with improving erythema over her back. Healed shallow ulceration behind the right ear and another 1 slightly lower. No drainage. No fresh blisters. Data 04/08/22 02:34 04/08/22 02:34 Micro: Microbiology 04/06/22 13:45 Blood Culture - Preliminary Blood NEGATIVE TO DATE 04/06/22 13:38 Blood Culture - Preliminary Blood NEGATIVE TO DATE A&P Assessment and plan (1) Cellulitis of face: Low-grade fever today 100 Fahrenheit, but overall fever curve has subsided. Leukocytosis resolved. Slowly improving facial, periorbital, neck and back swelling and induration. Resolution of erythema over the right heel, anterior right lower neck, posterior neck, resolving very faint erythema of the back. Wrinkling over the back with subsiding induration. Small rounded area of inferior external auditory canal appears to be possible clot/eschar at the site of prior noted blood-filled blister (or thought possibly nevus). Mild surrounding erythema. Follow-up for resolution, if persistent follow-up with ENT. Continue valacyclovir for now. Cautioned her on returning to the [facility], although contact dermatitis less likely as she also does not apply the cosmetic to the other areas that are affected. She states has never had prior reaction to cosmetics. Discussed with her to test on small area before returning to any extensive use. Consider follow-up with dermatology. For now continue IV antibiotics, reassess for resolution of fever, will reassess tomorrow if continued improvement possibly can transition to oral antibiotics and continue follow-up as outpatient. DC IVF. Follow-up CBC, BMP. For now empirically continues on valacyclovir. Shingles not likely responsible for current symptoms, but there was question whether may have been initial infection serving to the point of entry. Currently does not appear to have any fresh blisters. Obtain VZV serologies. Repeat titers on outpatient side for comparison. (2) Ear canal blister: Hemorrhagic appearing, measuring ~3-4 mm diameter on anterior surface of right ear canal. Alternatively this could be a dark nevi in the ear canal or hemangioma. (3) Elevated C-reactive protein (CRP): Follow-up in the morning. Attestations Medical Necessity Statement*: Continue admission for assessment of management of extensive area of cellulitis involving the face, neck, back, resolving fevers, continued IV antibiotics with reassessment again tomorrow prior to possible discharge. Coding Level of Care Code Acute Bow Repairer Custom for [facility] Fwd Diagnoses Cellulitis of face L03.211 Ear canal blister S00.429A Elevated C-reactive protein (CRP) R79.82
[2022-04-08 16:00] VITALS: BP 115/77; PULSE 70; RESP 16; TEMP 36.9; O2SAT 99
[2022-04-08 20:00] VITALS: BP 113/73; PULSE 82; RESP 18; TEMP 37.1; O2SAT 98
[2022-04-09 04:00] VITALS: BP 115/73; PULSE 72; RESP 18; TEMP 36.6; O2SAT 97
[2022-04-09] MEDS: vancomycin 750 MG in sodium chloride 0.9% 250 ML 250 MG IV (04:16)
[2022-04-09 04:32] LABS: Basophils # 0.1 10^3/uL (0.0-0.1); Eosinophils # 0.6 10^3/uL (0.0-0.8); Eosinophils % 7.6 %; Hematocrit 32.1 % (37.0-47.0); Hemoglobin 10.3 g/dL (11.5-15.3); Lymphocytes # 3.1 10^3/uL (0.8-4.8); Lymphocytes % 42.1 %; Mean Corpuscular HGB Conc 32.1 g/dL (30.0-36.0); Mean Corpuscular Hemoglobin 28.9 pg (28.0-34.0); Mean Corpuscular Volume 89.9 fl (81-99); Mean Platelet Volume 9.3 fL (7.4-10.4); Monocytes # 0.5 10^3/uL (0.2-0.9); Monocytes % 6.9 %; Neutrophils # 2.42 10^3/uL (1.8-7.7); Neutrophils % 33.4 %; Nucleated Red Blood Cells % 0 %; Platelet Count 280 10^3/cmm (130-400); Red Blood Count 3.57 10^6/uL (4.1-5.3); Red Cell Distribution Width 13.7 % (12.1-15.1); White Blood Count 7.2 10^3/uL (4.0-10.0)
[2022-04-09 04:47] LABS: C Reactive Protein 107.1 mg/L (0.0-4.9)
[2022-04-09 04:48] LABS: Vancomycin Trough 11.6 ug/mL (10-15)
[2022-04-09 04:49] LABS: Anion Gap 11.6 (5-19); Blood Urea Nitrogen 7 mg/dL (6-20); Calcium 8.2 mg/dL (8.5-10.5); Carbon Dioxide 23 mmol/L (22-29); Chloride 108 mmol/L (98-107); Glomerular Filtration Rate 98.3 mL/min (90-130); Glucose 91 mg/dL (65-115); Osmolality Calculated 286 mOsm/kg (285-295); Potassium 3.6 mmol/L (3.5-5.1); Sodium 139 mmol/L (136-145)
[2022-04-09] MEDS: piperacillin-tazobactam 3.375 GM in sodium chloride 0.9% (plus) 50 ML IV (06:01)
[2022-04-09] MEDS: valACYclovir 1,000 mg Tablet 1000 MG PO (06:04)
[2022-04-09 08:00] VITALS: BP 132/81; PULSE 77; RESP 16; TEMP 36.8; O2SAT 100
--- NOTE | 2022-04-09 10:41 | P.DS_ITS ---
Discharge Providers Date of Admission: 04/06/22 14:21 Date of Discharge: April 09, 2022 Attending Provider at Admission: Kell Field MD Attending Provider at Discharge: Torsten Collier Primary Care Provider: Ten Paris MD Diagnoses at Discharge Discharge Diagnosis (1) Cellulitis of face: Status: Acute (2) Ear canal blister: Status: Acute (3) Elevated C-reactive protein (CRP): Status: Acute Reason for Visit Reason for Visit: facial swelling Hospital Course Hospital Course Was admitted for assessment management due to right ear, facial including forehead and upper face, right anterior and posterior neck and back areas of redness, induration, skin tenderness with fevers, leukocytosis and tachycardia, with cellulitis with area of ingress of a pimple behind the right ear which she had manipulated in the week prior leading to some bloody drainage. She states she then exercised at the gym and got quite sweaty. She did squats with a barbell on her back. She had also recently started using a new foundation about a week earlier, denies any prior reaction to cosmetic products, and did not apply foundation to any of the other areas apart from face which were not affected on presentation but does report remote atopic history with an episode of diffuse rash after using a specialty soap that was brought by her mother that was imported from [place]. With extensive cellulitis of her face, neck, back and leukocytosis she was started on empiric antibiotic coverage with vancomycin, ciprofloxacin. On initial presentation she was thought to have shingles for which she was prescribed valacyclovir and prednisone valacyclovir. Steroid was stopped, valacyclovir was empirically continued. On presentation with significantly elevated ESR and CRP. Blood cultures were collected and remain negative. Noted tiny blood-filled blister in inferior portion of the mid right external ear canal in ER. Necrotizing fasciitis on presentation was considered and thought to be low in likelihood. With empiric treatment SIRS gradually resolved. Erythema, edema and pain started to slowly subside and is much better today. With improving inflammatory markers. VZV serologies were obtained and should be followed up with serology in 4 weeks which may give a clue as to whether she did have shingles causing the initial compromise to the skin barrier. 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 Consider further assessment for underlying condition of recurrent infections like IgM deficiency. She is, however, also noted to have small pustules that have formed, including over bilateral zygoma as well as on her back raising suspicion of contact dermatitis, possibly allergy to nickel or other metal given she did use a barbell holding it on her back at the upper margin of the area of erythema on her back with a somewhat linear border and were swelling at that upper margin, or shampoo for other cosmetic agent. She is referred for follow-up with dermatology. Please reassess also right in lower mid right external ear canal which on reassessment he is noted to have small papular structure with brownish-red dome which appears to be possibly a thrombosed remnant of the previously reported blister with some surrounding erythema. Please reassess for resolution. If not resolving please refer to ENT for further assessment. Physical Exam Narrative: Friend at bedside. Const: COMMON NORMALS: patient oriented x3 and alert GENERAL APPEARANCE: cooperative ORIENTATION/CONSCIOUSNESS: Yes awake HENMT: COMMON NORMALS: oropharynx normal OTHER: In the inferior portion about midway through the external auditory canal there is a small round area of about 1.5 to 2 mm suspected site of the prior vesicle, currently with brownish/reddish discoloration slight doming and appears to be clot/eschar at the site of the prior reported blister, mild surrounding erythema. Neck/C-Spine: COMMON NORMALS: no JVD Resp: COMMON NORMALS: normal respiratory effort and clear to auscultation bilaterally AUSCULTATION: clear to auscultation bilaterally Cardio: COMMON NORMALS: no JVD, regular rhythm, S1 normal heart sound present, S2 normal heart sound present and No murmurs present (Cardio) RHYTHM: regular rhythm HEART SOUNDS: S1 normal heart sound present and S2 normal heart sound present GI: COMMON NORMALS: Normal to inspection, nondistended, normoactive bowel sounds present, Soft to palpation and non-tender PALPATION: Yes Soft to palpation Extremity: COMMON NORMALS: no joint enlargement and no pedal edema Neuro: COMMON NORMALS: patient oriented x3 and moves all extremities SENSORIUM/ORIENTATION: Yes alert Skin: RASHES: rashes noted (Subsided erythema, persistent induration with facial swelling) OTHER: Resolving swelling over forehead and periorbital swelling. Improved swelling and resolved erythema R ear. Swelling over the neck appears to be resolved. Resolved erythematous patch right inferior neck, persistently now milder induration with resolved erythema and improving edema over her back. Healed shallow ulceration behind the right ear and another 1 slightly lower. No drainage. No fresh blisters. Discharge Data Studies Completed and Pending Completed Studies During Hospitalization Category Date Time Status XR chest 1V portable [id number] Stat Exams 04/06/22 11:52 Completed Pending at discharge Category Date Time Status Basic Metabolic Panel AM LABS Lab 04/10/22 04:00 Ordered Blood Culture Stat Lab 04/06/22 13:45 Results Complete Blood Count w/Auto AM LABS Lab 04/10/22 04:00 Ordered Varicella Zoster IGG&IGM Routine Lab 04/07/22 15:17 Received Radiology Impressions Chest X-Ray 04/06/22 11:52 IMPRESSION: No acute findings. Laboratory Results WBC 7.2 10^3/uL (4.0-10.0) 04/09/22 04:25 RBC 3.57 10^6/uL (4.1-5.3) L 04/09/22 04:25 Hgb 10.3 g/dL (11.5-15.3) L 04/09/22 04:25 Hct 32.1 % (37.0-47.0) L 04/09/22 04:25 MCV 89.9 fl (81-99) 04/09/22 04:25 MCH 28.9 pg (28.0-34.0) 04/09/22 04:25 MCHC 32.1 g/dL (30.0-36.0) 04/09/22 04:25 RDW 13.7 % (12.1-15.1) 04/09/22 04:25 Plt Count 280 10^3/cmm (130-400) 04/09/22 04:25 MPV 9.3 fL (7.4-10.4) 04/09/22 04:25 Neut % (Auto) 33.4 % 04/09/22 04:25 Lymph % (Auto) 42.1 % 04/09/22 04:25 [place] % (Auto) 6.9 % 04/09/22 04:25 Eos % (Auto) 7.6 % 04/09/22 04:25 Baso % (Auto) 1.0 % 04/09/22 04:25 Neut # (Auto) 2.42 10^3/uL (1.8-7.7) 04/09/22 04:25 Lymph # (Auto) 3.1 10^3/uL (0.8-4.8) 04/09/22 04:25 [place] # (Auto) 0.5 10^3/uL (0.2-0.9) 04/09/22 04:25 Eos # (Auto) 0.6 10^3/uL (0.0-0.8) 04/09/22 04:25 Baso # (Auto) 0.1 10^3/uL (0.0-0.1) 04/09/22 04:25 Nucleated RBC % (auto) 0 % 04/09/22 04:25 Nucleated RBCs # 0.0 /100WBC 04/09/22 04:25 ESR Cancelled 04/08/22 02:34 Sodium 139 mmol/L (136-145) 04/09/22 04:25 Potassium 3.6 mmol/L (3.5-5.1) 04/09/22 04:25 Chloride 108 mmol/L (98-107) H 04/09/22 04:25 Carbon Dioxide 23 mmol/L (22-29) 04/09/22 04:25 Anion Gap 11.6 (5-19) 04/09/22 04:25 BUN 7 mg/dL (6-20) 04/09/22 04:25 Creatinine 0.7 mg/dL (0.5-0.9) 04/09/22 04:25 GFR Calculation 98.3 mL/min (90-130) 04/09/22 04:25 Glucose 91 mg/dL (65-115) 04/09/22 04:25 Calculated Osmolality 286 mOsm/kg (285-295) 04/09/22 04:25 Lactic Acid 1.0 mmol/L (0.5-2.2) 04/06/22 12:10 Calcium 8.2 mg/dL (8.5-10.5) L 04/09/22 04:25 Magnesium 2.0 mg/dL (1.7-2.3) 04/09/22 04:25 Total Bilirubin 0.4 mg/dL (0.15-1.2) 04/06/22 12:10 AST 12 U/L (0-32) 04/06/22 12:10 ALT 12 U/L (0-33) 04/06/22 12:10 Alkaline Phosphatase 61 U/L (35-105) 04/06/22 12:10 Creatine Kinase 15 U/L (26-192) L 04/07/22 04:16 C-Reactive Protein 107.1 mg/L (0.0-4.9) H 04/09/22 04:25 Total Protein 7.3 g/dL (6.6-8.7) 04/06/22 12:10 Albumin 3.7 g/dL (3.5-5.2) 04/06/22 12:10 Globulin 3.6 g/dL (1.3-4.6) 04/06/22 12:10 Procalcitonin 0.23 ng/mL (0-0.5) 04/06/22 12:10 Urine Color Straw (Yellow) 04/06/22 12:10 Urine Appearance Clear (CLEAR) 04/06/22 12:10 Urine pH 7 (5-7) 04/06/22 12:10 Ur Specific [place] 1.000 (1.005-1.030) L 04/06/22 12:10 Urine Protein Neg (Negative) 04/06/22 12:10 Urine Glucose (UA) Norm (Normal) 04/06/22 12:10 Urine Ketones Negative (Negative) 04/06/22 12:10 Urine Blood 3+ (Negative) H 04/06/22 12:10 Urine Nitrate Negative (Negative) 04/06/22 12:10 Urine Bilirubin Neg (Negative) 04/06/22 12:10 Urine Urobilinogen Norm mg/dL (Negative) 04/06/22 12:10 Ur Leukocyte Esterase Negative (Negative) 04/06/22 12:10 Urine RBC 0-4 /hpf (0-2) H 04/06/22 12:10 Urine WBC 0-4 /hpf (0-5) H 04/06/22 12:10 Ur Squamous Epith Cells 5-10 /hpf (0-5) H 04/06/22 12:10 Amorphous Sediment Not Reportable 04/06/22 12:10 Urine Bacteria 1+ /hpf (NONE) H 04/06/22 12:10 Vancomycin Trough 11.6 ug/mL (10-15) 04/09/22 04:25 Vitals Last Vital Signs Temp 98.3 F 04/09/22 08:00 Pulse 77 01/06/23 08:00 Resp 16 04/09/22 08:00 BP 132/81 04/09/22 08:00 Pulse Ox 100 04/09/22 08:00 O2 Del Method 04/09/22 08:00 Discharge Plan Discharge Patient Disposition: Home Condition: Stable Prescriptions: New doxycycline hyclate 100 mg capsule 100 mg PO BID 4 Days Qty: 8 0RF Continued hydrocodone-acetaminophen 5-325 mg tablet 1 tab PO Q4H PRN (Reason: pain) 7 Days Qty: 28 0RF valacyclovir 1 gram tablet 1,000 mg PO Q8H 10 Days Qty: 30 0RF Rx Instructions: for 10 days (filled 04/04/22) Tums 200 mg calcium (500 mg) Tablet,Chewable 200 mg PO QID PRN (Reason: unknown) ibuprofen 200 mg Tablet 600 - 800 mg PO Q6H PRN (Reason: Pain) hydroxyzine HCl 25 mg tablet 25 mg PO BEDTIME PRN (Reason: Anxiety) Discontinued prednisone 20 mg tablet 20 mg PO DAILY 5 Days Qty: 15 0RF Rx Instructions: for 5 days (filled 04/04/21 5d/s Discharge Orders: Discharge Order (Routine); Ordered 04/09/22 Ordered By: Torsten Collier Referrals: Dermatology [facility] [Provider Group] - 1 week (Extensive dermatitis, suspected cellulitis, possible contact dermatitis. Shingles was also considered possible initial insult. ) Ten Paris MD [Primary Care Provider] - 04/16/22 2:15 pm Patient Instructions: Doxycycline (By mouth), Cellulitis (GEN) Activity Restrictions/Additional Instructions: Complete antibiotic course for suspected cellulitis. Follow-up with your primary doctor for reassessment of resolution of symptoms. Blood cultures are still pending, so far have been negative. Avoid scratching, picking or squeezing skin especially if it may become contaminated as it may cause risk infection. Discussed recommended treatment suspected streptococcal infections consider assessment for IgM deficiency or other underlying condition. VZV serologies pending, please follow-up with your primary doctor regarding results and repeat titers in 4 weeks. Follow-up with your primary doctor also regarding small area of redness, with raised reddish/brown site suspected at site of prior blister for resolution. If not resolving discussed referral to ENT for further evaluation. Follow-up with your primary doctor and dermatology regarding consideration of possible contact dermatitis due to presence of small pustules. Consider with your primary doctor and repairer resistance welding machines regarding contact dermatitis to nickel considering it occurred after gym visit or other allergy testing given prior reaction to soap and also presence of small pustules. Avoid all possible allergens at this time. If considering [facility] medical recs do not apply with. Discussing with your repairer resistance welding machines first or testing on a small area first before using a larger area. With doxycycline you may have sensitivity to sunlight while taking the medication. Avoid extensive sun exposure while on the medication. Review the included information sheet. Discharge Attestations Time Spent in Discharge Care*: greater than 30 min Quality Metrics Clinical Quality Measures [ No reported AMI, CVA or VTE this stay] Coding Level of Care Code Acute g [facility] note Diagnoses Cellulitis of face L03.211 Ear canal blister S00.429A Elevated C-reactive protein (CRP) R79.82
[2022-04-09 11:37] VITALS: BP 132/81; PULSE 77; RESP 16; TEMP 36.8; O2SAT 100
== END 2022-04-09 11:43 | disposition home or self-care (01) | DRG 603 ==
LOC: ER 13:33 → MEDSURG 14:22
PROVIDERS: Admitting Provider Hospitalist; Emergency Provider Family Medicine; PCP Family Medicine; Visit Provider Internal Medicine
DX: L03.211 Cellulitis of face (principal); L03.312 Cellulitis of back [any part except buttock and flank]; L03.221 Cellulitis of neck; R79.82 Elevated C-reactive protein (CRP); S00.421A Blister (nonthermal) of right ear, initial encounter; X58.XXXA Exposure to other specified factors, initial encounter
CPT/HCPCS: 36415; 71045; 80048; 80053; 80202; 81001; 82550; 83605; 83735; 84145; 85025; 85651; 86140; 86787; 87040; 93005; 96365; 96367; 96375; 99285; J1885; J2270; J2405; J2543; J3370; J3480; J7030; J7040; J7050

== ENCOUNTER 2022-07-25 19:30 | Emergency (ER) | payer OTHER, SELFPAY ==
[2022-07-25 19:32] VITALS: BP 116/80; PULSE 80; RESP 14; TEMP 36.7; O2SAT 97; BMI 24.4
--- NOTE | 2022-07-25 20:17 | XRR_ITS ---
PROCEDURE INFORMATION: Exam: XR Right Ankle Exam date and time: 07/25/2022 8:22 PM Age: 31 years old Clinical indication: Injury or trauma; Fall; Blunt trauma; Ankle; Left; Additional info: Fall, pain TECHNIQUE: Imaging protocol: Radiologic exam of the right ankle. Views: 3 or more views. COMPARISON: No relevant prior studies available. FINDINGS: Bones/joints: Os trigonum, a normal variant. Soft tissues: Normal. XR/XR ankle LT min 3V* [id number] IMPRESSION: 1. Negative for fracture or dislocation. 2. Os trigonum, a normal variant.
--- NOTE | 2022-07-26 02:58 | ED_ITS ---
HPI - Extremity Problem General: Chief complaint: Extremity Injury, Lower Stated complaint: Left Ankle Injury Time Seen by Provider: 07/25/22 20:00 Source: patient Mode of arrival: wheelchair Limitations: no limitations History of Present Illness: Patient presents emergency department today for evaluation treatment of left medial ankle pain and left anterior, superior foot pain. Patient states she was walking down some steps when she stepped down and rolled her ankle in an everted fashion. Patient has had difficulty with any weightbearing and complains of pain to the medial malleolus. She reports she is here because she felt her foot was turning cold and was tingly and numb. She contacted a family friend who is a nurse who told her she needed to come into the emergency department. Patient is still able to wiggle the toes on her left foot. 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 [employer] Female Reproductive History: Date of last menstrual period: 07/25/22 Para: 1 Physical Exam Const: COMMON NORMALS: no acute distress, patient oriented x3 and alert HENMT: COMMON NORMALS: normocephalic, atraumatic and hearing grossly normal bilaterally HEAD & SCALP: normocephalic and atraumatic Eye: COMMON NORMALS: Equal, round and reactive pupils present, EOMs intact bilaterally and conjunctivae normal CONJUNCTIVA: Yes conjunctivae normal PUPIL: Yes Equal, round and reactive pupils present Neck/C-Spine: COMMON NORMALS: full ROM and no JVD Lymph: LYMPHATIC: no lymphadenopathy noted Resp: COMMON NORMALS: normal respiratory effort, No retractions and No use of accessory muscles Cardio: COMMON NORMALS: no JVD and regular rate RATE: regular rate Extremity: NARRATIVE EXTREMITY EXAM: Patient does have some edema to the inferior portion of the left medial malleolus. Patient is also tender in this area but, is relatively tender to her ankle examination without point specific tenderness noted. Patient still has movement of the toes. Skin is warm, pink, with cap refill less than 2 seconds. Neuro: COMMON NORMALS: patient oriented x3 SENSORIUM/ORIENTATION: Yes alert Psych: COMMON NORMALS: mental status grossly normal, Normal thought process present, cooperative and normal affect THOUGHT PROCESS: Normal thought process present Skin: COMMON NORMALS: no rashes or lesions noted and turgor normal GENERAL SKIN EXAM: no rashes or lesions noted and turgor normal Course Vital Signs: Vital signs: Vital Signs Temperature 98.0 F 07/25/22 19:32 Pulse Rate 80 07/25/22 19:32 Respiratory Rate 14 07/25/22 19:32 Blood Pressure 116/80 07/25/22 19:32 Pulse Oximetry 97 07/25/22 19:32 Oxygen Delivery Me thod Room Air 07/25/22 19:32 MDM - Extremity (Nontraumatic) Medical Decision Making Patient's x-rays today are negative for any signs of acute fracture. Discussed this with the patient. Given her edema and tenderness she most likely has an ankle sprain and we discussed conservative treatment with a brace and crutches. Patient does not want crutches but is willing to wear the brace. We discussed at home RICE therapy. She asked about wearing the brace while she continues to do CrossFit. Encouraged her to wear supportive ankle brace if she is returning to CrossFit but, would recommend at least 1 week of rest to allow the extremity to heal. Of note, patient has an os trigonum. I did show this to the patient so she would be aware if she ever obtained ankle films in the future to make her aware of that this is a normal variant. Lab Data Radiology Impressions Ankle X-Ray 07/25/22 20:17 IMPRESSION: 1. Negative for fracture or dislocation. 2. Os trigonum, a normal variant. Discharge Plan Discharge Patient Disposition: Home Clinical Impression: Ankle sprain and strain Condition: Stable Prescriptions: No Action adapalene 0.3 % gel with pump 1 applic topical DAILY Qty: 45 4RF Rx Instructions: Apply a pea-sized amount to clean dry face nightly (differin w/ pump) clindamycin phosphate 1 % gel 1 applic topical DAILY Qty: 30 3RF Rx Instructions: Apply to affected areas of the face, nightly. Tums 200 mg calcium (500 mg) Tablet,Chewable 200 mg PO QID PRN (Reason: unknown) ibuprofen 200 mg Tablet 600 - 800 mg PO Q6H PRN (Reason: Pain) hydroxyzine HCl 25 mg tablet 25 mg PO BEDTIME PRN (Reason: Anxiety) Discharge Orders: Discharge ED (Routine); Ordered 07/25/22 Ordered By: Zelda Serrano Referrals: Ten Paris MD [Primary Care Provider] - Discharge Diet: Usual diet Discharge Activity: Limit activity as instructed Patient Instructions: Ankle Sprain (ED) Activity Restrictions/Additional Instructions: X-rays negative for any signs of acute bony fracture. You do have some swelling noted to the medial side of your ankle which does correlate with an ankle sprain. I do recommend wearing your ankle brace throughout the day for the next week. You do not have to sleep with it and may remove it to bathe. You can also use crutches for the next several days to remain completely nonweightbearing on the ankle as necessary. Keep your foot up and elevated is much as possible. Apply ice for 15 to 20 minutes, multiple times throughout the day and use Tylenol or ibuprofen for pain. You may notice generalized discomfort for a week or 2 with this injury. If you are going to go back to y our CrossFit I do recommend wearing your ankle brace for several more weeks while exercising to help provide stability of the joint during your exercises. Coding Level of Care Code ED Appellate Law Clerk for Raymundo Stroud
== END 2022-07-25 21:40 | disposition home or self-care (01) ==
PROVIDERS: Emergency Provider Physician Assistant; PCP Family Medicine
DX: S93.402A Sprain of unspecified ligament of left ankle, initial encounter (principal); S96.912A Strain of unspecified muscle and tendon at ankle and foot level, left foot, initial encounter; X50.1XXA Overexertion from prolonged static or awkward postures, initial encounter
CPT/HCPCS: 73610; 99283